=== PATIENT | male | born 1955 | race Caucasian/White ===

== ENCOUNTER 2017-09-13 02:14 | Inpatient (IN) | payer OTHER ==
[~2017-09-13] VITALS: Ht 177.8 cm; Wt 106.8 kg
[2017-09-13] VITALS (18 sets, daily range): BP systolic 106–168; BP diastolic 52–90
[2017-09-13] MEDS ORDERED: ondansetron/PF 4mg/2ml inj IV ONE (02:40)
[2017-09-13] MEDS: morphine 4 MG/ML inj SYRINge IV PRN ×2 (02:50→03:43)
[2017-09-13 03:10] LABS: BASOPHILS % (AUTO) 0.3 % (0-1); EOSINOPHILS # (AUTO) 0.1 X10'3 (0-0.9); HEMATOCRIT 41.7 % (42.0-52.0); HEMOGLOBIN 14.4 g/dl (14.0-17.9); LYMPHOCYTES % (AUTO) 10.9 % (21-51); MEAN CORPUSCULAR HEMOGLOBIN 30.6 PG (27.0-31.0); MEAN CORPUSCULAR HGB CONC 34.6 % (33.0-36.5); MEAN CORPUSCULAR VOLUME 88.3 FL (78-98); MEAN PLATELET VOLUME 7.2 FL (7.4-10.4); MONOCYTES # (AUTO) 0.6 X10'3 (0-0.9); MONOCYTES % (AUTO) 6.4 % (2-12); NEUTROPHILS # (AUTO) 7.4 X10'3 (1.8-7.7); NEUTROPHILS % (AUTO) 81.4 % (42-75); PLATELET COUNT 206 X10'3 (140-440); RED BLOOD COUNT 4.72 X10'6 (4.70-6.10); RED CELL DISTRIBUTION WIDTH 13.3 % (11.5-14.5); WHITE BLOOD COUNT 9.1 X10'3 (4.5-11.0)
[2017-09-13 03:20] LABS: CLARITY,URINE CLEAR (Clear); COLOR,URINE YELLOW (Yellow); GLUCOSE, URINE NEGATIVE (Neg); KETONES,URINE NEGATIVE (Neg); LEUKOCYTE ESTERASE ,URINE NEGATIVE (Neg); NITRITES, URINE NEGATIVE (Neg); OCCULT BLOOD,URINE NEGATIVE (Neg); PH,URINE 5.5 (4.8-8.0); PROTEIN,URINE NEGATIVE (Neg); UA COLLECTION TYPE CLN CATCH MIDSTREAM
[2017-09-13 03:23] LABS: ALANINE AMINOTRANSFERASE 27 U/L (12-78); ALBUMIN 4.1 G/DL (3.4-5.0); ALBUMIN/GLOBULIN RATIO 1.2 (1.1-1.5); ALKALINE PHOSPHATASE 56 IU/L (46-116); ANION GAP 9 (8-16); ASPARTATE AMINO TRANSFERASE 15 U/L (10-37); BILIRUBIN,TOTAL 0.8 MG/DL (0.1-1.0); BLOOD UREA NITROGEN 28 MG/DL (7-18); BUN/CREATININE RATIO 20.4 (5.4-32.0); CALCIUM 9.3 MG/DL (8.5-10.1); CHLORIDE 108 MMOL/L (99-107); CREATININE 1.37 MG/DL (0.60-1.10); GLUCOSE 152 MG/DL (70-104); LIPASE 120 U/L (73-393); MAGNESIUM 2.1 MG/DL (1.5-2.4); POTASSIUM 3.9 MMOL/L (3.5-5.1); SODIUM 144 MMOL/L (135-145); TOTAL CARBON DIOXIDE 27.2 MMOL/L (24-32); TOTAL PROTEIN 7.5 G/DL (6.4-8.2); eGFR 52 ML/MIN
[2017-09-13] MEDS ORDERED: piperacillin/tazo 3.375gm/50ml 50 ML IV ONE (03:35)
[2017-09-13] MEDS ORDERED: HYDROmorphone 2mg/ml vial IV PRN (03:55)
[2017-09-13] MEDS ORDERED: BENA10TA2 PO (03:58)
[2017-09-13] MEDS ORDERED: FENO48TA4 PO (03:58)
[2017-09-13] MEDS ORDERED: bisacodyl 10mg suppository rectal RC PRN (04:05)
[2017-09-13] MEDS ORDERED: ondansetron/PF 4mg/2ml inj IV PRN ×2 (04:05→11:10)
[2017-09-13] MEDS ORDERED: acetaminophen 650mg rectal suppository RC PRN (04:05)
[2017-09-13] MEDS ORDERED: HYDROcodone/acetaminophen 5mg/325mg tablet PO PRN ×2 (04:05→12:30)
[2017-09-13] MEDS ORDERED: HYDROmorphone inj. 0.5 MG/0.5 ML DISP.SYRIN IV ONE (04:05)
[2017-09-13] MEDS ORDERED: mag hydrox/Alum hydrox/simeth 30ml oral suspension PO PRN (04:05)
[2017-09-13] MEDS ORDERED: morphine 4 MG/ML inj SYRINge IV PRN ×4 (04:05→11:10)
[2017-09-13] MEDS ORDERED: diphenhydrAMINE 50 mg/ml inj IV PRN (04:05)
[2017-09-13] MEDS ORDERED: HYDROcodone/acetaminophen 10/325mg tab PO PRN (04:05)
[2017-09-13] MEDS ORDERED: magnesium hydroxide 30ml (MOM) UD suspension PO PRN (04:05)
[2017-09-13] MEDS ORDERED: acetaminophen 325mg tablet PO PRN ×2 (04:05)
[2017-09-13] MEDS ORDERED: diphenhydrAMINE 25mg capsule PO PRN (04:05)
[2017-09-13] MEDS ORDERED: metoclopramide 5 mg/ml inj IV PRN (04:05)
[2017-09-13] MEDS ORDERED: HYDROmorphone inj. 0.5 MG/0.5 ML DISP.SYRIN IV PRN ×2 (04:05)
[2017-09-13] MEDS ORDERED: HYDROmorphone 1 mg/ml syringe ONE (04:07)
[2017-09-13 04:31] LABS: HEMOGLOBIN A1C 5.7 % (4.5-6.2)
[2017-09-13] MEDS: dextrose 5%-1/2 normal saline 1,000 ML IV SCH ×3 (04:36→17:16)
[2017-09-13] MEDS: docusate sod 100mg capsule PO SCH ×2 (07:39→19:50)
[2017-09-13] MEDS: lactobacillus rhamnosus 10,000 MMU CELLS/CAPSULE PO SCH ×2 (07:39→19:50)
[2017-09-13] MEDS: pantoprazole 40 MG vial IV SCH (08:41)
[2017-09-13] MEDS: piperacillin/tazo 4.5gm/100ml 100 ML IV SCH ×3 (08:42→23:27)
[2017-09-13] MEDS ORDERED: LIDOcaine 1% 30ml preserv. free vial ONE (10:49)
[2017-09-13] MEDS ORDERED: ROPIVAcaine 0.5% (5mg/ml) 30ml vial ONE (10:49)
[2017-09-13] MEDS ORDERED: desflurane 240ml liquid inh. IH ONE ×2 (11:08)
[2017-09-13] MEDS ORDERED: ringers solution, lacted 1,000 ML IV SCH (11:09)
[2017-09-13] MEDS ORDERED: proCHLORperazine 10 MG/2 ml inj IV PRN (11:10)
[2017-09-13] MEDS ORDERED: acetaminophen 1,000mg/100ml IV 100 ML IV PRN (11:10)
[2017-09-13] MEDS ORDERED: meperidine/PF 25mg/ml syringe IV PRN ×3 (11:10)
[2017-09-13] MEDS ORDERED: ketorolac trometh. 30mg/ml inj. IV ONE (11:10)
[2017-09-13] MEDS ORDERED: midazolam 2 mg/2 ml injection ONE (11:18)
[2017-09-13] MEDS ORDERED: fentaNYL /PF 50mcg/ml 5ml ampule ONE (11:19)
[2017-09-13] MEDS ORDERED: LIDOcaine 2% (20mg/ml) 5ml vial ONE (11:27)
[2017-09-13] MEDS ORDERED: propofol inj 20 ML IV ONE (11:27)
[2017-09-13] MEDS ORDERED: LIDOcaine 2% 5ml jelly ONE (11:27)
[2017-09-13] MEDS ORDERED: rocuronium 10mg/ml inj IV ONE (11:28)
[2017-09-13] MEDS ORDERED: dexamethasone sod phosphate 4mg/ml inj. ONE (11:30)
[2017-09-13] MEDS ORDERED: ondansetron/PF 4mg/2ml inj ONE (11:31)
[2017-09-13] MEDS ORDERED: neostigmine methylsulfate 1 MG/ML 10ml vial ONE (12:37)
[2017-09-13] MEDS ORDERED: glycopyrrolate 0.2mg/ml inj ONE (12:37)
[2017-09-13] MEDS ORDERED: FENO134C PO (13:25)
[2017-09-13] MEDS ORDERED: BENA20TA2 PO (13:26)
[2017-09-13] MEDS ORDERED: ASPI-611 PO (14:14)
[2017-09-13] MEDS ORDERED: temazepam 15mg capsule PO PRN (21:00)
[2017-09-14] VITALS: BP 99/57
[2017-09-14 03:43] VITALS: BP 102/54
[2017-09-14] MEDS: dextrose 5%-1/2 normal saline 1,000 ML IV SCH (04:25)
[2017-09-14 05:56] LABS: BASOPHILS % (AUTO) 0 % (0-1); EOSINOPHILS # (AUTO) 0.1 X10'3 (0-0.9); EOSINOPHILS % (AUTO) 0.9 % (0-6); HEMATOCRIT 34.5 % (42.0-52.0); HEMOGLOBIN 11.8 g/dl (14.0-17.9); LYMPHOCYTES # (AUTO) 0.7 X10'3 (1.1-4.8); LYMPHOCYTES % (AUTO) 7.2 % (21-51); MEAN CORPUSCULAR HEMOGLOBIN 30.3 PG (27.0-31.0); MEAN CORPUSCULAR HGB CONC 34.2 % (33.0-36.5); MEAN CORPUSCULAR VOLUME 88.6 FL (78-98); MEAN PLATELET VOLUME 7.9 FL (7.4-10.4); MONOCYTES # (AUTO) 0.8 X10'3 (0-0.9); MONOCYTES % (AUTO) 7.9 % (2-12); PLATELET COUNT 175 X10'3 (140-440); RED CELL DISTRIBUTION WIDTH 12.8 % (11.5-14.5); WHITE BLOOD COUNT 9.6 X10'3 (4.5-11.0)
[2017-09-14 06:20] LABS: ALANINE AMINOTRANSFERASE 34 U/L (12-78); ALBUMIN 2.9 G/DL (3.4-5.0); ALKALINE PHOSPHATASE 42 IU/L (46-116); ANION GAP 8 (8-16); ASPARTATE AMINO TRANSFERASE 23 U/L (10-37); BLOOD UREA NITROGEN 26 MG/DL (7-18); BUN/CREATININE RATIO 19.8 (5.4-32.0); CHLORIDE 104 MMOL/L (99-107); CHOL/HDL RATIO 2.7 (0.00-4.99); CHOLESTEROL 109 MG/DL (0-200); CREATININE 1.31 MG/DL (0.60-1.10); GLUCOSE 151 MG/DL (70-104); HDL CHOLESTEROL 40 MG/DL (35-60); LDL CHOLESTEROL 57 MG/DL (50-100); SODIUM 138 MMOL/L (135-145); TOTAL CARBON DIOXIDE 26.4 MMOL/L (24-32); TOTAL PROTEIN 5.8 G/DL (6.4-8.2); TRIGLYCERIDES 80 MG/DL (20-135); eGFR 55 ML/MIN
[2017-09-14 07:06] VITALS: BP 108/55
[2017-09-14] MEDS: pantoprazole 40 MG vial IV SCH (07:30)
[2017-09-14] MEDS: docusate sod 100mg capsule PO SCH (07:30)
[2017-09-14] MEDS: lactobacillus rhamnosus 10,000 MMU CELLS/CAPSULE PO SCH (07:30)
[2017-09-14] MEDS: piperacillin/tazo 4.5gm/100ml 100 ML IV SCH (07:32)
[2017-09-14 11:29] VITALS: BP 124/62
[2017-09-14] MEDS ORDERED: HYDR-569 PO (13:05)
[2017-09-15] MEDS ORDERED: pantoprazole 40mg Tablet.DR PO SCH (07:30)
== END 2017-09-14 14:15 | disposition home or self-care (01) | DRG 418 ==
LOC: ER 02:15 → ED HOLD 04:02 → SUR 3N 07:46
PROVIDERS: ADMIT Family Medicine; ATTEND Surgery
PROC: 0FT44ZZ Resection of Gallbladder, Percutaneous Endoscopic Approach (ICD-10-PCS; principal; 2017-09-13 11:08)
DX: K80.00 Calculus of gallbladder with acute cholecystitis without obstruction (principal); N17.9 Acute kidney failure, unspecified; I10 Essential (primary) hypertension; E78.5 Hyperlipidemia, unspecified; E86.0 Dehydration; R00.2 Palpitations; R00.1 Bradycardia, unspecified; N40.0 Benign prostatic hyperplasia without lower urinary tract symptoms; K57.90 Diverticulosis of intestine, part unspecified, without perforation or abscess without bleeding; Z79.899 Other long term (current) drug therapy; Z79.82 Long term (current) use of aspirin
CPT/HCPCS: 96365; 96375; 96376; 99285; Z7506; 36415; 71045; 74176; 80053; 80061; 81003; 83036; 83605; 83690; 83735; 83880; 84145; 84443; 84484; 85025; 87070; 93005; A7000; C9113; J1100; J1170; J1885; J2001; J2175; J2250; J2270; J2405; J2543; J2704; J2710; J2795; J3010; J3490; J7120